=== PATIENT | male | born 1985 | race Hispanic/Latino ===

== ENCOUNTER 2018-12-02 16:28 | Emergency (ER) | payer BC, SELFPAY ==
[2018-12-02 17:23] LABS: #Basophils 0.1 thou/uL (0.0-0.2); #Eosinphils 0.3 thou/uL (0.0-0.7); #Monocytes 0.6 thou/uL (0.11-0.59); #Neutrophils 5.7 thou/uL (1.40-6.50); %Basophils 0.6 % (0.0-1.0); %Eosinophils 3.4 % (0.0-10.0); %Lymphocytes 23.6 % (21.0-51.0); %Monocytes 6.9 % (0.0-10.0); %Neutrophils 65.6 % (42.0-75.0); Hemoglobin 16.6 g/dL (14.0-18.0); Mean Corpuscular HGB CONC 34.8 g/dL (32.0-36.0); Mean Corpuscular Hemoglobin 30.6 pg (27.0-31.0); Mean Corpuscular Volume 87.9 fL (78.0-98.0); Mean Platelet Volume 7.3 fL (7.4-10.4); Platelet Count 269 thou/uL (130-400); RBC Distribution Width 11.9 % (11.5-14.5); Red Blood Cell (RBC) Count 5.42 mill/uL (4.70-6.10); White Blood Cell (WBC) Count 8.7 thou/uL (4.8-10.8)
[2018-12-02 17:56] LABS: ALT (SGPT) 26 U/L (8-55); AST (SGOT) 15 U/L (5-34); Albumin 4.2 g/dL (3.5-5.0); Alkaline Phosphatase 119 U/L (40-110); Anion Gap 16 mmol/L (10-20); BUN (Urea Nitrogen) 14 mg/dL (8.9-20.6); Bilirubin, Total 0.3 mg/dL (0.2-1.2); Calc. Creatinine Clearance 0 mL/min (70-130); Calcium 9.5 mg/dL (7.8-10.44); Carbon Dioxide 24 mmol/L (22-29); Chloride 100 mmol/L (98-107); Estimated GFR-MDRD 66; Globulin 3.1 g/dL (2.4-3.5); Glucose 511 mg/dL (70-105); Potassium 5.6 mmol/L (3.5-5.1); Protein, Total 7.3 g/dL (6.0-8.3); Sodium 134 mmol/L (136-145)
[2018-12-02 20:27] LABS: Phosphorus 3.2 mg/dL (2.3-4.7)
[2018-12-02 21:50] LABS: Bilirubin Negative (Negative); Blood, Urine Negative (Negative); Clarity Clear (Clear); Glucose, Urine (Dipstick) Greater than 1000 mg/dL (Negative); Leukocyte Negative Leu/uL (Negative); Nitrite Negative (Negative); Protein, Urine (Dipstick) 10 mg/dL (Neg-Trace); Urobilinogen Normal mg/dL (Less than 2)
[2018-12-02 22:03] LABS: Base Excess-Venous 0.3 mmol/L (-2.0 to 3.0); Bicarbonate (HCO3v) 25.4 mmol/L (22.0-28.0); CO2 Tension (PvCO2) 41.7 mmHg (40.0-50.0); Calcium, Ionized 1.14 mmol/L (See Comments:); Chloride 104 mmol/L (98-107); Hemoglobin - Calc 14.3 g/dL (14.0-18.0); Potassium 4.4 mmol/L (3.5-5.1); Sodium 141 mmol/L (138-145); T. Carbon Dioxide 26.7 mmol/L (22.0-28.0); vO2 Saturation-calc 76.7 % (60.0-85.0)
[2018-12-02 22:04] LABS: Anion Gap 11 mmol/L (10-20); BUN (Urea Nitrogen) 14 mg/dL (8.9-20.6); Calc. Creatinine Clearance 0 mL/min (70-130); Calcium 8.3 mg/dL (7.8-10.44); Carbon Dioxide 24 mmol/L (22-29); Chloride 107 mmol/L (98-107); Estimated GFR-MDRD Greater than 90; Glucose 271 mg/dL (70-105); Potassium 4.6 mmol/L (3.5-5.1); Sodium 137 mmol/L (136-145)
--- NOTE | 2018-12-06 14:01 | EKG ---
Test Reason : Blood Pressure : / mmHG Vent. Rate : 083 BPM Atrial Rate : 083 BPM P-R Int : 164 ms QRS Dur : 090 ms QT Int : 344 ms P-R-T Axes : 033 018 049 degrees QTc Int : 404 ms Normal sinus rhythm Normal ECG Confirmed by GALILEO AYALA M.D. ([id number]), primer expeditor and drier JUAN ADAIR ([id number]) on 12/06/2018 2:00:50 PM Referred By: Confirmed By:GALILEO AYALA M.D.
== END 2018-12-02 22:22 | disposition home or self-care (01) ==
LOC: ERS 16:28
DX: E11.65 Type 2 diabetes mellitus with hyperglycemia (principal); R74.8 Abnormal levels of other serum enzymes
CPT/HCPCS: 36415; 36416; 80053; 81003; 82010; 82330; 82803; 83690; 83735; 84100; 85025; 93005; 96360; 96361

== ENCOUNTER 2019-04-22 23:48 | Emergency (ER) | payer BC, SELFPAY ==
[2019-04-23 01:00] LABS: ALT (SGPT) 36 U/L (8-55); AST (SGOT) 20 U/L (5-34); Albumin 3.9 g/dL (3.5-5.0); Alkaline Phosphatase 118 U/L (40-110); Anion Gap 11 mmol/L (10-20); BUN (Urea Nitrogen) 19 mg/dL (8.9-20.6); Bilirubin, Total 0.7 mg/dL (0.2-1.2); Calc. Creatinine Clearance 0 mL/min (70-130); Calcium 9.2 mg/dL (7.8-10.44); Carbon Dioxide 27 mmol/L (22-29); Chloride 100 mmol/L (98-107); Estimated GFR-MDRD 71; Globulin 3.3 g/dL (2.4-3.5); Glucose 407 mg/dL (70-105); Protein, Total 7.2 g/dL (6.0-8.3); Sodium 133 mmol/L (136-145)
== END 2019-04-23 01:43 | disposition home or self-care (01) ==
LOC: ERS 23:48
DX: E11.65 Type 2 diabetes mellitus with hyperglycemia (principal); E78.5 Hyperlipidemia, unspecified; Z79.84 Long term (current) use of oral hypoglycemic drugs
CPT/HCPCS: 36415; 36416; 80053; 96360

== ENCOUNTER 2019-04-28 01:09 | Emergency (ER) | payer BC | END 2019-04-28 02:04 | disposition home or self-care (01) | LOC: ERS 01:09 | DX: E11.65 Type 2 diabetes mellitus with hyperglycemia (principal); E78.5 Hyperlipidemia, unspecified; E78.00 Pure hypercholesterolemia, unspecified | CPT/HCPCS: 36416; 93005 ==

== ENCOUNTER 2022-08-04 08:07 | Emergency (ER) | payer BC | END 2022-08-04 08:28 | disposition home or self-care (01) | LOC: ERS 08:07 | DX: S01.91XD Laceration without foreign body of unspecified part of head, subsequent encounter (principal); W11.XXXA Fall on and from ladder, initial encounter ==